=== PATIENT | female | born 1955 | race Caucasian/White ===

== ENCOUNTER 2025-01-06 11:27 | Emergency (ER) | payer OTHER ==
[~2025-01-06] VITALS: Ht 157.5 cm; Wt 106.6 kg
--- NOTE | 2025-01-06 11:54 | ERN ---
ED Note History of Present Illness Stated Complaint: LEFT ARMPIT INJURY/MECHANICAL INJURY 12/27/24 Chief Complaint: Muscle Spasm Time Seen by MD: 11:33 Time Seen by Midlevel: 11:40 Dictation: Mr. Covarrubias is a 69 year old female with history of obesity, GERD, anxiety, and depression presented to the emergency department this morning for evaluation of rib pain. She sustained a fall on 12/27; tripped on uneven pavement outside. She fell onto her left side breaking fall with her left hand/wrist. She sustai bartolo bruising to her left wrist which has improved. She continues to have pain to her left lateral chest/ribs. She states she has pain when moving her left shoulder as well as pain with deep inspiration or cough. She denies having fever, chills, shortness of breath, palpitations, edema, abdominal pain, nausea, vomiting, diarrhea, dysuria, headache, or dizziness. She has been taking Tylenol for discomfort. 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 EYES: Patient denies any visual symptoms. EARS, NOSE, AND THROAT: No difficulties with hearing. No symptoms of rhinitis or sore throat. CARDIOVASCULAR: Patient denies palpitations, orthopnea and paroxysmal nocturnal dyspnea. Reports left sided chest/rib pain. RESPIRATORY: No dyspnea on exertion, no wheezing. Reports left sided chest/rib pain with cough or deep breathing. GI: No nausea, vomiting, diarrhea, constipation, abdominal pain, hematochezia or melena. : No urinary hesitancy or dribbling. No nocturia or urinary frequency. No abnormal urethral discharge. MUSCULOSKELETAL: Reports pain to left wrist following a fall on 12/27; improving. NEUROLOGIC: No chronic headaches, no seizures. Patient denies numbness, tingling or weakness. PSYCHIATRIC: Patient denies problems with mood disturbance. No problems with anxiety. ENDOCRINE: No excessive urination or excessive thirst. DERMATOLOGIC: Reports bruising left wrist Initial Vital Sign VS Vital Signs Date Time Temp Pulse Resp B/P (MAP) Pulse Ox O2 Delivery O2 Flow Rate FiO2 01/06/25 11:33 99.3 94 16 139/86 96 Room Air 0 Physical Exam Dictation Vital signs: Reviewed. Temperature 99.4. Constitutional: No acute distress. Non-toxic appearing. Pleasant. Head/Face: Normocephalic, atraumatic. Eyes: Periorbital areas with no swelling, redness, or edema. Lids and lashes are normal. Conjunctival injection is absent. Sclera anicteric. Pupils equal, round, reactive to light. ENT: Pinnas intact and no signs of trauma or erythema. Ear canals clear and no discharge. TMs no erythema. No nasal discharge or bleeding noted. Oropharynx with no exudate, redness, swelling, masses, exudates, or evidence of obstruction. Uvula midline. Mucous membranes moist. Neck: Trachea midline, no masses palpated, and no cervical lymphadenopathy. No swelling. Supple, full range of motion. Chest/Axilla: There is tenderness upon palpation to left lateral chest at level of ribs 3/4/5. No deformity; no crepitus, no paradoxical movement. Cardiovascular: Regular rate, regular rhythm, no murmur, no gallops. Symmetric pulses. No peripheral edema. Normotensive. Respiratory: Respirations even and unlabored. Lung sounds clear; no wheezes, rales or rhonchi. Room air spo2 96% Gastrointestinal: Obese. No distention is appreciated. Bowel sounds are normal. No mass or organomegaly . There is no tenderness. No rebound. No rigidity. No voluntary or involuntary guarding. No Douglas's sign. Neurological: Normal speech, gross motor function intact, gross sensory function intact. No focal weakness/Paresthesia. Musculoskeletal/Extremities: All extremities have full range of motion. Symmetric pulses. There is bruising and some pain to left hand/wrist. ROM intact with good color, warmth, movement and sensation to left fingers. Capil melisa refill < 3 seconda. Integumentary: Intact. Skin is normal color, warm and dry. Cap refill less than 3 seconds. There is fading/green bruising to left hand/wrist. Results (Laboratory/Radiology) X-RAY Comment: PATIENT: DARELL COVARRUBIAS MR#: [id number] : 1955 SEX: F AGE: 69 LOCATION: [facility] ORDER [id number] STATUS: REG ER REPORT#: [id number] SERVICE 1145 REASON: fall/left chest-rib pain ORDERING PHYSICIAN: FATIMAH JIMENEZ NP PROCEDURE: RIB LT W C - RIBS UNI LT W PA CHEST 3+VWS RIBS UNI LT W PA CHEST 3+VWS REASON: fall/left chest-rib pain TECHNIQUE: 6 views were obtained. FINDINGS: PA chest x-ray shows some mild linear scarring or atelectasis in the right lung. Left lung is clear. Left rib series shows normal findings. There are no fractures. Stranding soft tissues appear unremarkable. IMPRESSION: 1. Unremarkable PA chest x-ray and normal left rib series. DICTATED BY: SANAM MOLINA MD DATE: 01/06/25 1233 ELECTRONICALLY SIGNED BY: SANAM MOLINA MD DATE: 01/06/25 1237 ED Course ED Course Orders Procedure Category Date Status Time Ribs Uni Lt W Pa RAD 01/06/25 Resulted Chest 3+Vws 11:45 Ketorolac PHA 01/06/25 Complete Tromethamine 30mg/Ml 12:00 Current Medications Medications (Trade) Dose Ordered Sig/Trevon Route PRN Reason Start Time Stop Time Status Last Admin Dose Admin Ketorolac Tromethamine (toRADol) 30 mg ONCE ONCE IM 01/06/25 12:00 01/06/25 12:01 DC Vital Signs Date Time Temp Pulse Resp B/P (MAP) Pulse Ox O2 Delivery O2 Flow Rate FiO2 01/06/25 11:33 99.3 94 16 139/86 96 Room Air 0 Uneventful ED course. Vital signs stable; room air SpO2 96-98%. Chest x-ray unremarkable with clear lung hughes. No rib fracture. While in the emergency department she received IM dose analgesics; Toradol x1. Discharge instructions given. Medical Decision Making MDM MDM: Differential diagnosis: rib fracture, pneumonia/atelectasis, contusion Rationale: Tests considered and ordered secondary to shared decision making include: CXR Previous outside records reviewed: Old ER visits. Risk of complication and/or morbidity or mortality of patient management: None Medications-Per medication reconciliation Need for hospitalization: Patient does not meet criteria for hospitalization. Need for emergency major/minor surgery: No There are no social concerns with this patient. Prescription drug management: Tramadol, Ibuprofen Prescriptions will include symptomatic care Patient's prior external medical records from other ER visits were reviewed by me as indicated. Prior testing and results from previous visits were reviewed. Prior tests were taken into account with medical decision making and resource utilization, independent historian/historians were used to obtain complete medical history. I independently interpreted the test that were performed, results were reviewed by me and considered findings on radiology if ordered. Medical management and examination interpretation discussions were had by me with other qualified healthcare professionals as indicated for the patient's care. DX & DISP Disposition: Discharge Departure Impression: Primary Impression: Contusion of chest wall Additional Impression: Rib pain on left side Condition: Stable Scripts Tramadol HCl/Acetaminophen (Tramadol-Acetaminophn 37.5-325) 37.5 Mg-325 Mg Tablet 1 TAB PO q8 hours PRN PRN for pain, #10 TAB 0 Refills Prov: FATIMAH JIMENEZ NP 01/06/25 Ibuprofen (Ibuprofen) 600 Mg Tablet 600 MG PO Q6H PRN for PAIN, #1 TAB 0 Refills Prov: FATIMAH JIMENEZ NP 01/06/25 Additional Instructions: Rest. Cough and deep breathing exercises. Take ibuprofen every 6 hours as needed for discomfort. For worse pain may take tramadol every 8 hours as needed. Follow up with your primary care physician. Return to the emergency department for any worsening of symptoms or concerns Time of Disposition: 13:26 FATIMAH JIMENEZ NP Jan 06, 2025 11:54
--- NOTE | 2025-01-06 12:37 | HMCIMG ---
RIBS UNI LT W PA CHEST 3+VWS REASON: fall/left chest-rib pain TECHNIQUE: 6 views were obtained. FINDINGS: PA chest x-ray shows some mild linear scarring or atelectasis in the right lung. Left lung is clear. Left rib series shows normal findings. There are no fractures. Stranding soft tissues appear unremarkable. IMPRESSION: 1. Unremarkable PA chest x-ray and normal left rib series.
[2025-01-06 13:20] VITALS: BP 122/78; PULSE 87; RESP 20; TEMP 98.6; O2SAT 100
[2025-01-06] MEDS: ketOROlac 30MG VIAL (30MG/ML) IM ONE (13:25)
[2025-01-06] MEDS ORDERED: IBUP-2070 PO (13:25)
[2025-01-06] MEDS ORDERED: TRAM-543 PO (13:25)
== END 2025-01-06 13:32 | disposition home or self-care (01) ==
LOC: EDH 11:27
DX: S20.219A Contusion of unspecified front wall of thorax, initial encounter (principal); K21.9 Gastro-esophageal reflux disease without esophagitis; Z88.1 Allergy status to other antibiotic agents; Z90.49 Acquired absence of other specified parts of digestive tract; W01.0XXA Fall on same level from slipping, tripping and stumbling without subsequent striking against object, initial encounter; Y93.89 Activity, other specified; Y92.89 Other specified places as the place of occurrence of the external cause; Y99.8 Other external cause status
CPT/HCPCS: 99283; 71101; 96372; J1885